=== PATIENT | male | born 1975 | race American Indian/Alaskan Native ===

== ENCOUNTER 2019-10-25 13:17 | Outpatient (CLI) | payer OTHER ==
--- NOTE | 2019-10-25 14:25 | Magnetic Resonance Report ---
MRI LEFT KNEE WITHOUT CONTRAST INDICATION: Medial left knee pain. COMPARISON: None available. TECHNIQUE: Multiplanar, multisequence MR images were obtained. FINDINGS: ACL: Normal. PCL: Normal. DISTAL QUADRICEPS TENDON: Normal. PATELLAR TENDON: Normal. MEDIAL MENISCUS: There is a nondisplaced horizontal tear of the posterior horn of the medial meniscus with a tiny 6 mm parameniscal cyst. LATERAL MENISCUS: There is a small nondisplaced vertical tear of the posterior horn of the lateral me niscus. POSTEROLATERAL CORNER: Normal. MCL: Normal. LCL: Normal. DISTAL BICEPS FEMORIS TENDON: Normal. POPLITEUS TENDON: Normal. DISTAL IT BAND: Normal. ARTICULAR CARTILAGE: Mild chondrosis of the medial and lateral femorotibial compartments with mild se condary marginal osteophyte formation. JOINT SPACE: No significant joint effusion or synovitis. No popliteal cyst. INTRA-ARTICULAR BODIES: None. BONES: No bone marrow edema. No fracture. No osseous lesion. SOFT TISSUES: No acute findings. ADDITIONAL FINDINGS: None. IMPRESSION: 1. Horizontal tear of the posterior horn of the medial meniscus with a tiny para meniscal cyst along the posterior aspect of the posterior horn. 2. Nondisplaced vertical tear of the posterior horn of the lateral meniscus. 3. 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 Signer Name: Steve Huitron MD Signed: 10/25/2019 2:20 PM Workstation Name: [id number]
== END 2019-10-25 13:18 | disposition home or self-care (01) ==
LOC: MRI 13:17
PROVIDERS: ATTEND Internal Medicine
DX: S83.242A Other tear of medial meniscus, current injury, left knee, initial encounter (principal); S83.282A Other tear of lateral meniscus, current injury, left knee, initial encounter; M25.762 Osteophyte, left knee; X58.XXXA Exposure to other specified factors, initial encounter; Y93.89 Activity, other specified; Y92.89 Other specified places as the place of occurrence of the external cause; Y99.8 Other external cause status
CPT/HCPCS: 73721